=== PATIENT | female | born 1980 | race Two or more races ===

== ENCOUNTER 2020-02-18 10:26 | Emergency (ER) | payer BC, SELFPAY ==
--- NOTE | 2020-02-18 11:35 | EDM.PDOC ---
ED HPI GENERAL MEDICAL PROBLEM - General Chief Complaint: ENT Problem Stated Complaint: EAR INFECTION Time Seen by Provider: 02/18/20 10:57 - History of Present Illness INITIAL COMMENTS - FREE TEXT/NARRATIVE: History of present illness: 40-year-old female presenting with ear discomfort. Apparently yesterday she started to feel that the left ear had some diminished hearing and then today felt like the right ear also developed some decreased hearing. She has had a bit of a scratchy throat and some very mild cough but no fever. No difficulty swallowing. She reports that she has a history of ear infections and she was afraid to let it go too long in case it developed into an ear infection. Review of systems: As per history of present illness and below otherwise all systems reviewed and negative. Past medical history: As per history of present illness and as reviewed below otherwise noncontributory. Prior ear infections Surgical history: As per history of present illness and as reviewed below otherwise noncon tributory. Social history: No reported history of drug or alcohol abuse. No tobacco Family history: As per history of present illness and as reviewed below otherwise noncontributory. Physical exam: GEN: no acute distress, well appearing HEENT: Atraumatic, normocephalic, mucous membranes moist, no pharyngeal erythema, very mild tonsillar enlargement without erythema or exudate, no oral lesions. EOMI. Right TM without bulging or erythema, there is some prior scarring over the TM. Otic canal unremarkable. Left TM clear with no erythema, bulging or scarring. The left otic canal is slightly erythematous and very mildly narrowed and was tender during examination. Neck: supple, mildly tender anterior lymphadenopathy. Trachea midline. Lungs: No respiratory distress. Heart: RRR Extremities: Atraumatic. Neurovascularly intact. Neuro: Awake, alert, oriented. Neuro Exam nonfocal. Skin: warm, dry, no lesions Diagnostics: Therapeutics: Discharged with Cortisporin MDM: Scratchy throat and ear fullness/hearing changes, suspect minor upper respiratory/viral type illness. No signs of pharyngitis. There is some mild canal narrowing on the left, possible early otitis externa. Will cover with Cortisporin drops. Discussed with patient no need for oral antibiotics at this time as the rest of her symptoms are likely viral in origin. We did discuss pain control with ibuprofen and decongestants. Patient voiced understanding and agrees with the plan. Impression: Plan: Definitive disposition and diagnosis as appropriate pending reevaluation and review of above. Left Ear Pain Score (Numeric/FACES): 1 - Related Data Allergies Allergy/AdvReac Type Severity Reaction Status Date / Time No Known Allergies Allergy Verified 02/18/20 10:37 Home Meds: Home Meds Hydrocort/Neomycin/Polymyxin B [Nofilzlm-Daryepjke-LY Otic Susp] 4 drop EARLF Q6HR 7 Days #1 bottle 02/18/20 [Rx] Past Medical History - Infectious Disease History Infectious Disease History: Reports: None Social & Family History - Family History Family Medical History: Noncontributory - Tobacco Use Smoking Status *Q: Unknown Ever Smoked - Caffeine Use Caffeine Use: Reports: Coffee ED ROS ENT - Review of Systems Review Of Systems: See Below (See HPI) ED EXAM, ENT - Physical Exam Exam: See Below (See HPI) Course - Vital Signs Last Recorded V/S: Last Vital Signs Temp 98.5 F 02/18/20 10:37 Pulse 71 02/18/20 10:37 Resp 17 02/18/20 10:37 BP 107/74 02/18/20 10:37 Pulse Ox 98 02/18/20 10:37 Departure - Departure Time of Disposition: 11:33 Disposition: Home, Self-Care 01 Clinical Impression: Otitis externa, Viral upper respiratory illness - Discharge Information Prescriptions: Hydrocort/Neomycin/Polymyxin B [Yjsyxqsh-Ijyzorikl-FX Otic Susp] 4 drop EARLF Q6HR 7 Days #1 bottle Instructions: Otitis Externa, [id number], Ear Drops, Adult, [id number]-[id number], Viral Respiratory Infection, [id number], Upper Respiratory Infection, Adult, [id number] Referrals: Sheeba Peter DO [Primary Care Provider] - 2 Days Forms: ED Department Discharge Additional Instructions: The following information is given to patients seen in the emergency department who are being discharged to home. This information is to outline your options for follow-up care. We provide all patients seen in our emergency department with a follow-up referral. The need for follow-up, as well as the timing and circumstances, are variable depending upon the specifics of your emergency department visit. If you don't have a primary care physician on staff, we will provide you with a referral. We always advise you to contact your personal physician following an emergency department visit to inform them of the circumstance of the visit and for follow-up with them and/or the need for any referrals to a consulting specialist. The emergency department will also refer you to a specialist when appropriate. This referral assures that you have the opportunity for follow-up care with a specialist. All of these measure are taken in an effort to provide you with optimal care, which includes your follow-up. Under all circumstances we always encourage you to contact your private physician who remains a resource for coordinating your care. When calling for follow-up care, please make the office aware that this follow-up is from your recent emergency room visit. If for any reason you are refused follow-up, please contact the [facility] Emergency Department at and asked to speak to the emergency department charge nurse. Sepsis Event Note (ED) - Evaluation Sepsis Screening Result: No Definite Risk - Focused Exam Vital Signs: Vital Signs Temp Pulse Resp BP Pulse Ox 02/18/20 10:37 98.5 F 71 17 107/74 98
== END 2020-02-18 11:51 | disposition home or self-care (01) ==
LOC: MW.ED 10:26
DX: J06.9 Acute upper respiratory infection, unspecified (principal); H60.92 Unspecified otitis externa, left ear
CPT/HCPCS: 99282; 99283